=== PATIENT | female | born 1935 | race Caucasian/White ===

== ENCOUNTER 2021-07-30 14:12 | Emergency (ER) | payer MEDICARE, BC ==
[2021-07-30] MEDS ORDERED: HYDROCHLOROTH12.5 M2 PO (15:00)
[2021-07-30] MEDS ORDERED: LEVOTHYROXIN0.088 MG PO (15:00)
[2021-07-30] MEDS ORDERED: OLMESARTAN MEDO20 MG PO (15:01)
[2021-07-30] MEDS ORDERED: METOPROLOL SUC100 M1 PO (15:01)
[2021-07-30] MEDS ORDERED: VALIUM 5MG T5 MG/TAB (15:01)
[2021-07-30 16:45] VITALS: BP 183/98
== END 2021-07-30 16:39 | disposition home or self-care (01) ==
LOC: ED 14:12
DX: I10 Essential (primary) hypertension (principal); R55 Syncope and collapse; E03.9 Hypothyroidism, unspecified; Z98.890 Other specified postprocedural states; Z79.890 Hormone replacement therapy; Z79.899 Other long term (current) drug therapy